=== PATIENT | female | born 1940 | race Caucasian/White ===

== ENCOUNTER → 2020-07-20 10:11 | Outpatient (CLI) | payer OTHER, SELFPAY ==
[2020-07-20 11:05] LABS: Bacteria Urine None Seen; RBC Urine None Seen (0-5/HPF)
[2020-07-20 11:28] LABS: Add Manual Diff / Slide Review NO; Basophils Absolute Auto 0 /uL (0-100); Basophils Percent Auto 0.8 % (0-2); Eosinophils Absolute Auto 100 /uL (0-450); Hematocrit 40.6 % (36-46); Hemoglobin 13.6 g/dL (12.0-16.0); Lymphocytes Absolute Auto 1200 /uL (1100-4500); Lymphocytes Percent Auto 25.2 % (25-40); Mean Corpuscular HGB Conc 33.4 % (30-36); Mean Corpuscular Hemoglobin 29.7 PG (26-34); Mean Corpuscular Volume 88.9 fL (80-100); Monocytes Absolute Auto 400 /uL (0-900); Monocytes Percent Auto 9.1 % (3-14); Neutrophils Absolute Auto 2900 /uL (1500-7000); Neutrophils Percent Auto 62.9 % (50-75); Platelet Count 208 X10^3/uL (150-400); Red Blood Cell Count 4.57 X10^6/uL (4.0-5.2); Red Cell Distribution Width 14.1 % (11.6-14.8); White Blood Cell Count 4.7 X10^3/uL (4.5-11.0)
[2020-07-20 11:38] LABS: Hemoglobin A1C% w Est Avg Glu 5.5 % (4.0-6.0)
[2020-07-20 12:35] LABS: Appearance Urine UA CLEAR; Bilirubin Urine UA NEGATIVE (NEGATIVE); Color Urine UA YELLOW; Glucose Urine UA NEGATIVE (Negative); Ketones Urine UA NEGATIVE (NEGATIVE); Leukocyte Esterase Urine UA TRACE (NEGATIVE); Nitrite Urine UA NEGATIVE (Negative); Occult Blood Urine UA NEGATIVE (Negative); Protein Urine UA NEGATIVE (Negative); Specific Gravity Urine UA 1.015 (1.000-1.035); Urobilinogen Urine UA 0.2 E.U./dL (0.2)
[2020-07-20 12:48] LABS: Culture Indicated Urine Cult Not Indicated; WBC Urine 0-1/HPF (0-5/HPF)
[2020-07-20 12:59] LABS: BUN Creatinine Ratio 31.4 (6-22); Blood Urea Nitrogen 22 mg/dL (7-17); Carbon Dioxide 30 mmol/L (22-32); Chloride 103 mmol/L (98-107); Estimated Glomerular Filt Rate > 60.0 mL/min (>60); Glucose 90 mg/dL (80-110); HEMOLYSIS < 15 (0-50); Potassium 4.4 mmol/L (3.4-5.1); Sodium 138 mmol/L (137-145)
== END ==
PROVIDERS: Referring Provider Orthopaedic Surgery; Visit Provider Orthopaedic Surgery
DX: Z01.818 Encounter for other preprocedural examination (principal); Z01.812 Encounter for preprocedural laboratory examination; R73.9 Hyperglycemia, unspecified; N39.0 Urinary tract infection, site not specified
CPT/HCPCS: 36415; 80048; 81001; 83036; 85025; 93005

== ENCOUNTER 2020-08-04 06:14 | Day surgery (SDC) | payer OTHER, SELFPAY ==
[2020-07-21 09:18] VITALS: BMI 29.7
[2020-08-04] VITALS (14 sets, daily range): BP systolic 98–128; BP diastolic 36–70; PULSE 64–90; RESP 12–17; TEMP 35.5–36.8; O2SAT 92–100; BMI 29.7
--- NOTE | 2020-08-04 | DI.RAD.S_ITS ---
PROCEDURE: XR KNEE LT 1TO2V INDICATIONS: LEFT TOTAL KNEE TECHNIQUE: A total of 2 view(s) of the knee acquired. COMPARISON: None. FINDINGS: Bones: Patient is status post knee joint arthroplasty. Hardware components are in expected positions. Visualized bony structures are intact. Soft tissues: Overlying postoperative changes are noted. IMPRESSION: Normal alignment after left total knee arthroplasty. Dictated by: Doe Campo M.D. on 08/04/2020 at 10:46 Approved by: Doe Campo M.D. on 08/04/2020 at 10:47
[2020-08-04] MEDS: VANCOMYCIN 1,000 MG/200 ML PIGGYBACK 200 MG IV (06:58)
[2020-08-04] MEDS: MELOXICAM 7.5 MG TABLET 15 MG PO (06:59)
[2020-08-04] MEDS: LACTATED RINGERS 1,000 ML 42 ML IV (06:59)
[2020-08-04] MEDS: ACETAMINOPHEN 325 MG TABLET 975 MG PO (06:59)
[2020-08-04 07:03] LABS: COVID19 -Nasal RAPID Negative (Negative)
--- NOTE | 2020-08-04 07:38 | P.OP_ITS ---
Operative Date/Time/Diagnoses Date of procedure: 08/04/20 Time of procedure: 07:55 Pre-op diagnosis: left knee OA Post-op diagnosis: same Procedure & Clinicians Procedure: Left total knee arthroplasty Same procedure as scheduled: Yes Indications: The patient has had progressively worsening left knee pain with radiographic changes consistent with arthritis. Non-operative management has failed and the patient has requested total knee replacement. The risks, benefits and alternatives to surgery were discussed with the patient prior to proceeding. Risks discussed included, but were not limited to, failure to relieve pain, stiffness, infection, nerve damage, deep venous thrombosis, pulmonary embolism, stroke, coma, heart attack, permanent paralysis and , as well as the potential need for eventual revision of the prosthetic. Surgeon: Shira Quiroz Montess[facility] Program Director: Brian Medellin Anesthesia Type: General and Spinal Operative Notes Findings: Severe left knee osteoarthritis, good stability Closure Type: primary Specimen(s): none sent Prosthetic devices, grafts, tissues, transplants, or devices: Quiroz and Nephew Georgette BCS 2 size 4 femur, size 3 tibia, +11 poly, 32 by 7-1/2 mm patella Applied: drain(s) Estimated Blood Loss (mL): 250 Blood products transfused: none Tourniquet time (min): 67 Procedure in detail: The patient was seen in the pre-operative area, where the patient identified the left knee as the operative site and this was marked with my initials. The patient received pre-operative antibiotics, and was taken to the operating room and placed on the operative table in the supine position. After satisfactory anesthesia, a time analysis clerk out was performed. The left leg was encircled with a tourniquet about the proximal thigh, and the leg was prepared from the toes to the tourniquet with ChloroPrep in the usual fashion and draped through sterile drapes. The leg was elevated and exsanguinated with Eschmark bandage and the tourniquet inflated to [250] mmHg pressure. The knee was approached through an approximately 18 cm incision centered over the patella and carried into the knee through a medial parapatellar arthrotomy. A portion of the medial and lateral meniscus was resected. Soft tissue was carefully mobilized around the patella the patella was measured with a caliper. Bone was resected from the patella and the patellar height was reconstituted with up an appropriate sized patellar component. A cover was then placed on the patella. A small amount of additional medial and lateral meniscus was resected. The distal femur was cut at 5?. A [+2] cut was used. It looked like an appropriate distal femoral cut and the cut was made without difficulty. An extramedullary guide was used for the tibial cut. 10 mm was resected off the least affected side.The tibia was prepared. The rotation was assessed. The patient was placed in extension residual medial and lateral meniscus as well as any residual bone was carefully resected. Hemostasis was achieved especially posteriorly. Additional local was injected into the posterior capsule. The extension gap was assessed and additional releases for gap balancing were performed as necessary. It was checked with the gap chief information security officer. The femoral component was trial was placed and the notch was finished. The rotation was assessed and the appropriate size femoral guide was placed on the distal femur and finishing cuts were made. There is no evidence of notching. The anterior, posterior and chamfer cuts were then made. The posterior osteophytes and soft tissues were then removed. The posterior capsule was injected with part of a mixture of 60 ml 0.25% Marcaine mixed with 20 ml Exparel for post operative pain control. The remainder of this mixture was injected into the capsule and subcutaneous tissues during cement curing. The tibial and femoral components were then placed and the knee placed through a range of motion. Range of motion was [0-130], with good stability throughout the range. The trials were then removed, and the tibia was finished. The bone was prepared with pulsatile lavage, and dried with a sponge. Cement was applied and the final prosthetics placed. Excess cement was removed during and after cement curing. A brief Betadine soak was performed. After confirming there was no extruded cement posteriorly, the final tibial insert was placed. The knee was copiously irrigated and the tourniquet deflated. Hemostasis was obtained with the Bovie. A drain was placed and brought out superolaterally. The capsule was closed with interrupted nonabsorbable suture. The subcutaneous layer was closed with barbed sutures, and the skin with a running 3-0 V-Lock suture and Surgical glue. An Aquacel Ag dressing was applied and the patient was taken to recovery having tolerated the procedure well. Complications: none Post-operative Condition: stable Disposition: Acute Care Plan for aftercare: The patient will be maintained on a standard total knee replacement protocol with weight bearing as tolerated. The patient will receive aspirin and sequential compression devices for DVT prophylaxis. The patient will be discharged home when safe for the home environment.
--- NOTE | 2020-08-04 07:38 | PM.PREOP ---
Pre-operative Note COVID-19 COVID-19 status: Negative Interval Note History & Physical reviewed/Exam performed by Physician: Yes Changes to H&P: No
[2020-08-04] MEDS: CEFAZOLIN 1 GM VIAL 2 GM IV ×2 (07:51→16:22)
[2020-08-04] MEDS: TRANEXAMIC ACID 1,000 MG VIAL 1000 MG INJ ×2 (08:02→09:28)
--- NOTE | 2020-08-04 08:22 | SUR.OPER ---
Supine on padded OR bed. Pillow under head, arms secured on padded armboards <90 degree abduction. Safety belt across torso. Non-operative leg secured with tape over blanket over lower leg. Operative leg secured in DeMayo/Frederick positioner. Foam padded brace at thigh of operative leg.
[2020-08-04] MEDS: BUPIVACAINE LIPOSOME 266 MG/20 ML VIAL INJ (08:27)
[2020-08-04] MEDS: SODIUM CHLORIDE IRRIG SOLUTION 250 ML, POVIDONE-IODINE SPONGE STICKS 1 APPLIC IRR (08:29)
[2020-08-04] MEDS: BUPIVACAINE 0.25% W/ EPI (PF) 10 ML VIAL 20 ML INJ (08:31)
--- NOTE | 2020-08-04 11:06 | PC.NURSE ---
Addendum entered by Priscilla Arthur R.N. 08/04/20 15:16: Patient ate well at lunch, she has minimal if any discomfort. Tylenol and ibuprofen given to patient to help prevent discomfort. Resting comfortably. Original Note: Patient back to the floor at 1035, she has an aquacel to her left knee with an gage wrap. Hemovac drain to be unclamped at 1130. Patient denies pain. She is on ivf. Thomas Saleh has feeling to her knee when touched. Denies nausea or pain at this time. Resting comfortably. [facility] wnl, will continue to check patients sensation level, she has scds on and is able to do ankle waves.
[2020-08-04] MEDS: LACTATED RINGERS 1,000 ML 100 ML IV ×2 (11:43→22:09)
--- NOTE | 2020-08-04 14:35 | PT.IIE ---
Current Diagnoses Unilateral primary osteoarthritis, left knee (08/04/20) Surgery Performed Operation Date: 08/04/20 07:45 Actual Procedures p Total Knee Arthroplasty(Left) - Shira Quiroz MD Surgical History (Last Updated 07/21/20 @ 10:21 by Nidia Awad, RN) History of facelift History of hysterectomy Hx of abdominoplasty Hx of appendectomy Hx of bilateral cataract extraction Medical History (Last Updated 07/21/20 @ 10:21 by Nidia Awad RN) Anxiety Depression GERD (gastroesophageal reflux disease) Hiatal hernia HLD (hyperlipidemia) HTN (hypertension) Hypothyroidism Nasal congestion Osteoarthritis Seasonal allergies Sensitive skin Sleep apnea Physical Therapy Inpatient Evaluation/Re-Eval M1 PT/OT-IP Prior Functional Status Start: 08/04/20 16:25 Freq: NEEDED Status: Active Protocol: Document 08/04/20 14:35 AB (Rec: 08/04/20 16:44 AB [id number]) Medical Review Prior Functional Status Medical History Reviewed Yes Communication able to make needs known Mobility and Gait pt stated that she is indpeendent with all mobilities an ambulation wtihout AD Prior Functional Level (Other details) Pt lives in [place] and stated that she was just visiting her partner/friend and decided to have a knee surgery. Social History Household Members significant other Living Arrangements House Number of Floors (Floors) Two Floors Number of Stairs To Enter/Railing? 4 steps L rail to enter the house 10 steps B rails to get to bedroom level Home Environment Standard Height Toilet,Walk in Shower Home Equipment Raised Toilet Seat Without Armrests,Hand Held Shower Additional Social History Comment initially stated that her partner/friend Fuentes will be able to assist her but limited and will not assist her with toileting/shower needs. also stated that Fuentes will refuse caregiver training (PT instructed pt to just ask Fuentes anyways) and that Fuentes will be having outpt back surgery this monday. aslo stated that somebody already arranged for HHPT for her. M2 PT-IP Current Condition Start: 08/04/20 16:25 Freq: NEEDED Status: Active Protocol: Document 08/04/20 14:35 AB (Rec: 08/04/20 16:44 AB [id number]) Physical Therapy Current Condition Current Condition Evaluation Date 08/04/20 Treatment Diagnosis s/p L TKA; difficulty in walking Onset Date 08/04/20 Weight Bearing Status Weight Bearing Status Weight Bear as Tolerated Allowed Weight Bearing Amount (enter % LLE WBAT or #) (%) M3 PT-IP Subjective Start: 08/04/20 16:25 Freq: NEEDED Status: Active Protocol: Document 08/04/20 14:35 AB (Rec: 08/04/20 16:44 AB [id number]) Subjective Physical Therapy Visit Type Type Initial Evaluation Visit Start Time 14:35 Visit Stop Time 15:38 Total Visit Minutes 63 Number of MARKETING AUTOMATION MANAGER Visits 0 Physical Therapy Visit Comments Patient Comments pt is agreeable to do PT Therapy Pain Assessment Pain When Pain Assessed At Rest Pain Present Pain Present Pain Reported Location left knee Intensity 2 Scale Used Numeric (0 - 10) Pain Management Techniques Apply Cold,Distraction, Elevation,Modification of Treatment,Re-positioning, Timing of Activity with Medications M4 PT-IP Mobility and Gait Start: 08/04/20 16:25 Freq: NEEDED Status: Active Protocol: Document 08/04/20 14:35 AB (Rec: 08/04/20 16:44 AB [id number]) PT-Bed Mobility Assessment Supine to Sit Supine to Sit Contact Guard Assistance PT-Transfer Assessment Sit to and From Stand Sit to and from Stand Maximum Assistance,1 Person Assistance,Use of Upper Extremities Equipment Transfer Assistive Device Gait Belt,Front Wheeled Walker Orthotic/Prosthetic Devices or Brace: No Transfers Transfer Destination Chair Transfer Technique ambulated using FWW Transfer Ability Level of Assist Maximum Assistance,1 Person Assistance,Use of Upper Extremities Comments Mobility Comments BP supine: 113/43. completed supine to sit CGA. pt was able to sit on EOB SBA. max cues for safety. completed sit to stand max A and cues. required assist to stabilize LLE. pt can be impulsive and has difficulty following directions. pt completed ambulation using FWW max A ~ 12 ft and max cues. required assist for L knee control. pt requested to stay up on chair . positioned on chair. call light and table placed within reach. reviewed post-op folder and HEP with pt. informed nurse/ NAC regarding level of assistance of pt. Gait Assessment Gait Gait Assistance Required: Maximum Assistance,1 Person Assist Distance (Feet) 12 Able to Maintain Weight Bearing Status Yes During Gait Assistive Devices Assistive Device Gait Belt,Front Wheeled Walker Orthotic/Prosthetic Devices or Brace: No Gait Deviations General Gait Pattern Antalgic,Decreased Stride Length,Decreased Feet Clearance,Step-to Gait Factors Limiting Gait Function Factors Limiting Gait Function Decreased Activity Tolerance, Decreased Sensation,Decreased Strength,Difficulty Following Directions,Limited Range of Motion,Pain,Poor Balance,Poor Safety Awareness PT-Balance Assessment Sitting Balance and Reactions Static Sitting Balance Ability Good Dynamic Sitting Balance Ability Good Standing Balance and Reactions Static Standing Balance Ability Fair Dynamic Standing Balance Ability Poor Device Used FWW M5 PT-IP Objective Assessments Start: 08/04/20 16:25 Freq: NEEDED Status: Active Protocol: Document 08/04/20 14:35 AB (Rec: 08/04/20 16:44 AB [id number]) Orientation Orientation/Cognition Level of Alertness Alert Orientation Name,Place,Situation Safety Awareness Decreased Safety Awareness Memory Description Short Term Impaired Gross Range of Motion Lower Extremity ROM Assessment Within Functional Limits Strength Lower Extremity Strength Assessment Left Impaired Hip 4-/5 Knee 3+/5 Coordination Assessment Gross Coordination Gross Coordination WNL Muscle Tone Muscle Tone WNL Yes M6 PT-IP Treatment Start: 08/04/20 16:25 Freq: NEEDED Status: Active Protocol: Document 08/04/20 14:35 AB (Rec: 08/04/20 16:44 AB [id number]) Physical Therapy Treatment Exercises Exercises Quad Sets,Heel Slides Education Education Provided Precautions,Weight Bearing Status,Post-Op Packet,Safety M7 PT-IP Assessment and Plan Start: 08/04/20 16:25 Freq: NEEDED Status: Active Protocol: Document 08/04/20 14:35 AB (Rec: 08/04/20 16:44 AB [id number]) PT Summary Assessment and Plan Potential Rehabilitation Potential Good Status of Condition at Evaluation Evolving Summary Impairments Pain,ROM,Strength,Balance, Coordination,Sensation,Tone, Cognition,Bed Mobility, Transfers,Gait,Activity Tolerance Assessment Summary pt s/p L TKA POD 0 and is requiring max A with ambulation using FWW. pt has difficulty following directions and requires cues with all tasks. pt lives in [place] and is just visiting her partner/friend who is also going to have a back surgery this monday. Pt stated that somebody has set up HHPT for her. pt have limited assistance at home and her friend will not be able to assist her starting this monday. will need to assess further for safe d/c plan. Goals Bed Mobility Goal Independent Transfer Goal Independent,Front Wheeled Walker Gait Goal Independent,Front Wheel Walker Gait Distance 150 Other Goals up/down 4 steps L rail ascending SBA up/down 10 steps B rails SBA Days to Meet Goals 5 Frequency of Treatment Frequency Of Treatment Twice a Day Treatment Plan Physical Therapy Treatment Plan Bed Mobility Training,Transfer Training,Gait Training, Therapeutic Exercise,Balance Retraining,Post Op Education, Discharge Planning,Hot or Cold Pack,Neuromuscular Re-ed, Coordination Retraining,Manual Therapy Other Recommendations and Next Treatment ambulation, stair climbing, Focus caregiver training Precautions Other Precautions LLE WBAT Recommendations To Nursing Amount of Assist Needed 1 Person Assist Discharge Recommendations PT Discharge Recommendations Home with 19/09 Assist Available,Home Health,SNF Rehab,Home vs SNF Transportation Needs at Discharge Wheelchair/Cabulance
[2020-08-04] MEDS: IBUPROFEN 400 MG TABLET PO ×3 (14:37→22:10)
[2020-08-04] MEDS: ACETAMINOPHEN 325 MG TABLET 650 MG PO ×2 (14:38→22:10)
[2020-08-04] MEDS: OXYCODONE IR 5 MG TABLET PO (19:06)
[2020-08-04] MEDS: GABAPENTIN 300 MG CAPSULE PO (22:10)
[2020-08-04] MEDS: DOCUSATE 100 MG CAPSULE PO (22:10)
[2020-08-04] MEDS: ASPIRIN EC 81 MG TABLET PO (22:11)
--- NOTE | 2020-08-04 23:27 | PC.NURSE ---
pt unable to void earlier, bladder scan 575cc. Tamar-RN attempted to straight cath, but it was too painful for patient. pt refused straight cath. pt able to void around 200cc. eventually pt voided an extra 600cc. pt has been ambulating to the bathroom. SBA-fww.
[2020-08-05] MEDS: CEFAZOLIN 1 GM VIAL 2 GM IV (00:09)
[2020-08-05 00:27] VITALS: O2SAT 95
[2020-08-05] MEDS: OXYCODONE IR 5 MG TABLET PO ×3 (02:28→11:48)
[2020-08-05] MEDS: diphenhydrAMINE 50 MG/ML VIAL 25 MG IV (02:28)
[2020-08-05 05:47] LABS: Hematocrit 35.5 % (36-46); Hemoglobin 11.9 g/dL (12.0-16.0)
[2020-08-05 05:49] VITALS: BP 111/46; PULSE 66; RESP 16; TEMP 36.3; O2SAT 98
[2020-08-05] MEDS: IBUPROFEN 400 MG TABLET PO ×2 (05:54→09:18)
[2020-08-05] MEDS: PANTOPRAZOLE DR 20 MG TABLET PO (06:07)
[2020-08-05 07:50] VITALS: BP 127/48; PULSE 68; RESP 16; TEMP 36.1; O2SAT 97
[2020-08-05 08:46] VITALS: RESP 14; O2SAT 98
[2020-08-05] MEDS: ACETAMINOPHEN 325 MG TABLET 650 MG PO (09:17)
[2020-08-05] MEDS: ATORVASTATIN 20 MG TABLET PO (09:18)
[2020-08-05] MEDS: DOCUSATE 100 MG CAPSULE PO (09:18)
[2020-08-05] MEDS: ASPIRIN EC 81 MG TABLET PO (09:18)
[2020-08-05] MEDS: SERTRALINE 50 MG TABLET PO (09:18)
--- NOTE | 2020-08-05 09:21 | CM.DANOTE ---
Addendum entered by SONDRA Johnson 08/05/20 11:17: ADD: Per PT, pt and SO Fuentes did well with CG training and stairs and pt safe for d/c home with neighbor friend assist if needed and outpt PT. Per Leonardo VIDAL, writing d/c orders for pt to d/c home today with no identified barriers to discharge. S.O. bedside in the room and providing transport home today. BF Original Note: Patient is a 80 year old female who was admitted on 08/04/20 for LTKA. Pt has REG MCR ADV for insurance and her PCP is in [place]. EMR was reviewed. Per Ortho MD, pt tolerated procedure well and recommending outpt PT and pt may be stable for d/c home later today after CG training with PT. Per PT yesterday, pt with limited physical assist from Sig other and pending progress recommending possible SNF vs HH. PT has CG training set up for 1000 today with pt and Sig Other Fuentes and will attempt stairs. SW met bedside with pt and explained role and she confirms she has been staying with her Sig Other Fuentes in [place] although her permanent address is [place]. Pt is active and independent at baseline and denies any DME but does not drive anymore and SO Fuentes transports pt when needed. Pt states her SO has had both his knees repaired and is quite aware of the precautions and recommendations and is willing to assist pt at d/c. SO will be bedside in about an hour to work with PT. Pt states she discussed HH vs outpt PT with Ortho and pt plans to utilize [facility] in [place] at d/c. Plan: SW to follow closely for CG training and stairs today with pt and SO towards confirming safe plan of home with assist and outpt PT. SONDRA Johnson Discharge Planning/Care Management CM Discharge Assessment Start: 08/05/20 09:16 Freq: Status: Active Protocol: Document 08/05/20 09:16 BF (Rec: 08/05/20 09:20 [id number]) Discharge Planning Assessment Assigned Primary Teacher SONDRA Stover DPOA/Assigned Designee Name informally gill Shen Contact Information [phone] Advance Directives? No Advance Directives on File No History Provided By Patient,Medical Record Has Patient been admitted in last 30 No days? Prior Living Arrangements House Household Members significant other Type of transporation used prior to Relies on Others admit Comment Sig Other does the driving Independent with ADL's Yes Is patient alert and oriented? Yes Needs Assistance With Home Chores / Shopping Caregiver for Another No Community Services used prior to Physical Therapy admission: Patient/Family Preference OP PT Therapy Comment HH vs outpt Barriers to Discharge No Discharge Plan Home Community Services Physical Therapy Transportation Arrangement Sig Other Fuentes to arrive bedside today to transport at d/c Referrals Initiated None needed Whiteboard Updated in Patient Room with Yes name and ext. # of Primary Teacher Review Status In Process Please Provide Date Initial DC 08/05/20 Assessment Was Performed Next Review Type Continued Stay Review Pre-Anesthesia Assessment Start: 07/21/20 09:18 Freq: Status: Active Protocol: Document 07/21/20 09:18 CAB (Rec: 07/21/20 10:45 CAB [id number]) Pre-Anesthesia Assessment PAC Comment COVID Rapid on admit - ok per Gloria Preferred Name Thomas Saleh Patient Information Reviewed Via Phone Assessment Assessment Completed With Patient Diagnostic Results BMP/CMP,CBC,EKG,Urinalysis Comment Labs/EKG @ 07/20/20-Pt needs to schedule, wants to do in [place] Primary Care Provider Eleni Seen Specialist in Last 12 Months Yes Specialist Seen Orthopedist Primary Language Citizen Of [place] Stoker Mechanic Required No Height 158.75 cm Weight 74.843 kg Body Mass Index (BMI) 29.7 Hearing Ability Normal Visual Assist None Dentition Type Teeth, Natural Present,Full- Upper Barriers to Learning Age related,Memory Hx Anesthesia Reactions No Hx Family Anesthesia Reaction No Hx Malignant Hyperthermia No Hx Blood Transfusions No Anesthesia Review Requested No alcohol intake never Smoking Status Never smoker Substance Use Type does not use Pain Present Pain Reported Musculoskeletal Symptoms Abnormal Gait,Back Pain, Difficulty Walking,Joint Pain, Neck Pain History of Falling (Recent or History of No ) Patient is completely paralyzed or No completely immobile Mental Status Oriented to own ability Is patient on oxygen? No Does patient have LAROSE/SOB No Hx Sleep Apnea Yes: Unable to tolerate CPAP CPAP/BIPAP use prescribed not used Currently Taking a Beta Bindu No Can You Climb a Flight of Stairs Without Yes SOB Hx Chest Pain No Hx SOB No Hx Syncope or Dizziness No Anti-Coagulant Therapy No Has a Casting Machine Set Up Operator No Cardiac Testing No Hx Pacemaker/ICD No Pacemaker Rep Required? No Cardiac Clearance Received Not Applicable Comment No regular exercise routine, able to ambulate around property without issue Diet Type At Home Regular dysphagia No Gastrointestinal Symptoms Reflux Bladder Pattern Incontinent, Stress Urinary Catheter Present No Hx Urinary Self Catheterization No Diabetes No HgbA1C 5.5 Date 07/20/20 Patient No Lactating No Hx Drug Resistant Organism No Presence of External or Internal Medical Yes: Phu eye lens Devices Have you had any close contact with No someone diagnosed with COVID-19? Marital Status / Lives With significant other Prior Living Arrangements House Support System None Does the Patient Have Assistance After No: S.O. minimal assistance Surgery Patient Discharge Plan Description Return Home Comment Pt not advised on length of stay per surgeon Feels Safe in Current Environment Yes Been Physically Hurt or Threatened By a No Person in Current Environment Do you have thoughts of harming yourself None or others? Are you currently considering suicide? No Do you have a plan to hurt yourself or No Plan others? Do You Have Any Spiritual Beliefs That No May Affect Your HC Choices? Do You Have Any Cultural Practices That No May Affect Your HC Choices? Comment Flash Who Can We Speak to About Patient's Care Family, friends Identifying Code for Release of Patient Declines to issue Information Health Care Proxy/Next of Kin Ac Blackwood (son) Ghassan ( son) Health Care Proxy Phone Number Ac: [phone] Ghassan: [phone] Emergency Contact Name Ac Blackwood (son) Ghassan ( son) Emergency Contact Phone Number Ac: [phone] Ghassan: [phone] Advance Directives? No Power of Resource Forester No: Pt unsure PAC Instructions Do not shave/clip surgical site,Durable medical equipment ,Medications to take/avoid, Nasal antibiotic,No ETOH/ petroleum product on skin DOS, NPO,Post-op transportation,Pre -surgical wash,Sensory aids, Sturdy shoes/comfortable clothes,Do not bring valuables and remove jewelry
--- NOTE | 2020-08-05 10:40 | PT.IPTN ---
Current Diagnoses Unilateral primary osteoarthritis, left knee (08/04/20) Surgery Performed Operation Date: 08/04/20 07:45 Actual Procedures p Total Knee Arthroplasty(Left) - Shira Quiroz MD Physical Therapy Treatment Note M2 PT-IP Current Condition Start: 08/04/20 16:25 Freq: NEEDED Status: Active Protocol: Document 08/04/20 14:35 AB (Rec: 08/04/20 16:44 AB [id number]) Physical Therapy Current Condition Current Condition Evaluation Date 08/04/20 Treatment Diagnosis s/p L TKA; difficulty in walking Onset Date 08/04/20 Weight Bearing Status Weight Bearing Status Weight Bear as Tolerated Allowed Weight Bearing Amount (enter % LLE WBAT or #) (%) M3 PT-IP Subjective Start: 08/04/20 16:25 Freq: NEEDED Status: Active Protocol: Document 08/05/20 10:06 SP (Rec: 08/05/20 12:46 SP [id number]) Subjective Physical Therapy Visit Type Type Treatment Note Visit Start Time 10:06 Visit Stop Time 10:40 Total Visit Minutes 34 Notes SO attended and provided CGA as needed throughout tx with cuing for positioning during stair mgt for safety. Number of GRAPHIC PRODUCTION ARTIST Visits 1 Physical Therapy Visit Comments Patient Comments pt is agreeable to do PT. Pt reported that wishes to go to outpatient therapy and SO can take her but female neighbor mentioned is available if needed for any needs. Patient Goals Return home with SO for assist as needed and attend outpatient therapy. Therapy Pain Assessment Pain When Pain Assessed During Mobility Pain Present Pain Present Pain Reported Location left knee Intensity 8 Scale Used during mobility, premedicated. Pain Behaviors Facial Grimacing Pain Management Techniques Apply Cold,Re-positioning, Timing of Activity with Medications M4 PT-IP Mobility and Gait Start: 08/04/20 16:25 Freq: NEEDED Status: Active Protocol: Document 08/05/20 10:06 SP (Rec: 08/05/20 12:46 SP [id number]) PT-Bed Mobility Assessment Supine to Sit Supine to Sit Standby Assistance Sit to Supine Sit to Supine Standby Assistance Scooting Scooting to Edge of Bed Standby Assistance Scooting Up and Down in Bed Standby Assistance PT-Transfer Assessment Sit to and From Stand Sit to and from Stand Standby Assistance,Contact Guard Assistance,Use of Upper Extremities Equipment Transfer Assistive Device Gait Belt,Front Wheeled Walker Orthotic/Prosthetic Devices or Brace: No Transfers Transfer Destination Chair Transfer Technique ambulated using FWW Transfer Ability Level of Assist Contact Guard Assistance,Use of Upper Extremities Comments Mobility Comments Pt was seated in chair when arrived. SO donned gait belt with instruction for safety support. Pt completed sit<> stand CGA initally then walked further distance into hallway using personal FWW CG> sBA via SO to stairs, complete stair mgt and returned to room . stand>sit on R EOB >supine SBA with ability to self lift LLE into bed with out UE support, lateral and superior scoot up to center self in bed using BUE and RLE. Instructed post op ex with AROM demonstrated. Supine>sit, Sit> stand using FWW SBA walked around bed and good hand placement slow descent into chair. Reviewed LAQ and knee flexion seated in chair. Pt had all needs, call light in reach before left. Gait Assessment Gait Gait Assistance Required: Standby Assistance,Contact Guard Assist Distance (Feet) 230 Able to Maintain Weight Bearing Status Yes During Gait Assistive Devices Assistive Device Gait Belt,Front Wheeled Walker Orthotic/Prosthetic Devices or Brace: No Gait Deviations General Gait Pattern Antalgic,Decreased Stride Length,Decreased Feet Clearance Factors Limiting Gait Function Factors Limiting Gait Function Decreased Activity Tolerance, Decreased Strength,Difficulty Following Directions,Limited Range of Motion,Pain Comments Gait Comments Pt ambulated to stairs, around nursing station and back to room step over step, cued for knee flexion and heel to phases with improvement using fWW initially cGA then decrease to SBA. Stair Climbing Assessment Evaluation Level of Assist On Stairs Contact Guard Assistance,1 Person Assistance Devices Stair Climbing Assistive Devices Left Railing,Right Railing Technique/Endurance Stair Climbing Direction Ascend and Descend Stair Climbing Technique Step to Step Number of Steps Climbed 3 Stair Climbing Set # Repetitions (reps) 1 Comments Stair Climbing Comments ascend/ descend 3 stairs step to patterning using BHR with good follow through post instruction on proper LE patterning, CGA by SO. PT-Balance Assessment Sitting Balance and Reactions Static Sitting Balance Ability Normal Dynamic Sitting Balance Ability Normal Standing Balance and Reactions Static Standing Balance Ability Good Dynamic Standing Balance Ability Fair Device Used FWW M5 PT-IP Objective Assessments Start: 08/04/20 16:25 Freq: NEEDED Status: Active Protocol: Document 08/04/20 14:35 AB (Rec: 08/04/20 16:44 AB [id number]) Orientation Orientation/Cognition Level of Alertness Alert Orientation Name,Place,Situation Safety Awareness Decreased Safety Awareness Memory Description Short Term Impaired Gross Range of Motion Lower Extremity ROM Assessment Within Functional Limits Strength Lower Extremity Strength Assessment Left Impaired Hip 4-/5 Knee 3+/5 Coordination Assessment Gross Coordination Gross Coordination WNL Muscle Tone Muscle Tone WNL Yes M6 PT-IP Treatment Start: 08/04/20 16:25 Freq: NEEDED Status: Active Protocol: Document 08/05/20 10:06 SP (Rec: 08/05/20 12:46 SP [id number]) Physical Therapy Treatment Exercises Exercises Ankle Pumps,Quad Sets,Heel Slides,Short Arc Quads,Seated Knee Flexion/Extension Knee ROM Measurement 90 deg AROM LLE Education Education Provided Precautions,Weight Bearing Status,Post-Op Packet,Safety M7 PT-IP Assessment and Plan Start: 08/04/20 16:25 Freq: NEEDED Status: Active Protocol: Document 08/05/20 10:06 SP (Rec: 08/05/20 12:46 SP [id number]) PT Summary Assessment and Plan Potential Rehabilitation Potential Good Status of Condition at Evaluation Evolving Summary Impairments Pain,ROM,Strength,Balance, Coordination,Sensation,Tone, Cognition,Bed Mobility, Transfers,Gait,Activity Tolerance Progress Towards Goals Progressing Toward Goals,Slow Progress due to Pain,Slow Progress due to Activity Tolerance Assessment Summary Pt required SBA during bed mobility, CGA initially Sit> stand and gait then decreased to sBA using personal/ borrowed FWW, CGA stair mgt. Pt is ok to return home with SO and female neighbor is available to assist her as needed when medically cleared. Pt preferred to go to outpatient therapy and SO or female neighbor can assist in transportation. Goals Bed Mobility Goal Independent Transfer Goal Independent,Front Wheeled Walker Gait Goal Independent,Front Wheel Walker Gait Distance 150 Other Goals up/down 4 steps L rail ascending SBA up/down 10 steps B rails SBA Days to Meet Goals 5 Frequency of Treatment Frequency Of Treatment Twice a Day Treatment Plan Physical Therapy Treatment Plan Bed Mobility Training,Transfer Training,Gait Training, Therapeutic Exercise,Balance Retraining,Post Op Education, Discharge Planning,Hot or Cold Pack,Neuromuscular Re-ed, Coordination Retraining,Manual Therapy Other Recommendations and Next Treatment Post op ex, gait using fWW Focus further distance. Precautions Other Precautions LLE WBAT Recommendations To Nursing Amount of Assist Needed Standby Assistance Discharge Recommendations PT Discharge Recommendations Home with Assistance, Outpatient PT Transportation Needs at Discharge Wheelchair/Cabulance
--- NOTE | 2020-08-05 11:03 | PM.DS.1 ---
History of Present Illness History of Present Illness Date Patient Seen: 08/05/20 Time Patient Seen: 11:03 Chief complaint: OPB Narrative: Patient's pain is [id number]. Denies fever or chills. No nausea or vomiting. Discharge Providers Provider Discharge Date: 08/05/20 Consults: 08/04/20 07:00 Consult to Anesthesiology Routine Comment: Consulting Provider: Anesthesiologist Reason for consultation: Regional block for post operative pain control 08/04/20 07:27 Consult to Respiratory Therapy Evaluate & Treat Comment: Physician Instructions: Evaluate and treat 08/04/20 10:59 Consult to Discharge Planning Routine Comment: Consult to Physical Therapy Evaluate & Treat Comment: Physician Instructions: postop TKA protocol Consult to Respiratory Therapy Evaluate & Treat Comment: Physician Instructions: Evaluate and treat Discharge provider: Brian Medellin PA-C Summary Hospital Course Discharge Diagnosis: Left knee osteoarthritis Hospital Course: Procedure: Left total knee arthroplasty Same procedure as scheduled: Yes Indications: The patient has had progressively worsening left knee pain with radiographic changes consistent with arthritis. Non-operative management has failed and the patient has requested total knee replacement. The risks, benefits and alternatives to surgery were discussed with the patient prior to proceeding. Risks discussed included, but were not limited to, failure to relieve pain, stiffness, infection, nerve damage, deep venous thrombosis, pulmonary embolism, stroke, coma, heart attack, permanent paralysis and , as well as the potential need for eventual revision of the prosthetic. Surgeon: Shira Quiroz Gas Scrubber Operator: Brian Medellin Anesthesia Type: General and Spinal Operative Notes Findings: Severe left knee osteoarthritis, good stability Closure Type: primary Specimen(s): none sent Prosthetic devices, grafts, tissues, transplants, or devices: [employer] BCS 2 size 4 femur, size 3 tibia, +11 poly, 32 by 7-1/2 mm patella Applied: drain(s) Estimated Blood Loss (mL): 250 Blood products transfused: none Tourniquet time (min): 67 Patient admitted to the hospital for left total knee arthroplasty. Patient consented to the same. Patient taken to the operating room yesterday underwent left total knee arthroplasty. Patient back in her room recovering well and is in stable condition. Discharge home today in stable condition. is home and available to assist her. Status at Discharge Cognitive/behavioral status at discharge: at baseline, oriented Functional status at discharge: uses cane/walker Overall status at discharge: patient is progressing back to baseline Time Spent with Patient Time spent: Less than 30 minutes Exam Vital Signs (past 8 hours): - 08/05/20 05:49 08/05/20 07:50 08/05/20 08:46 Temperature 97.4 F L 97.0 F L Pulse Rate 66 68 Respiratory Rate 16 16 14 Blood Pressure 111/46 L 127/48 L Pulse Oximetry 98 97 98 Oxygen Delivery Method Room Air Oxygen Flow Rate 0 Narrative Exam Narrative: Pleasant female ambulating and room with walker. Patient is in no apparent distress. Left knee dressing is Clean, dry, intact.. Neurovascular status is intact to the bilateral lower extremities. Objective Labs Result Diagrams: 08/05/20 05:35 Labs: Laboratory Results - last 24 hr 08/05/20 05:35 Hgb 11.9 L Hct 35.5 L PFSH Medical History Anxiety Depression GERD (gastroesophageal reflux disease) Hiatal hernia HLD (hyperlipidemia) HTN (hypertension) Hypothyroidism Nasal congestion Osteoarthritis Seasonal allergies Sensitive skin Sleep apnea Surgical History History of facelift History of hysterectomy Hx of abdominoplasty Hx of appendectomy Hx of bilateral cataract extraction Social History household members: significant other Smoking Status: Never smoker alcohol intake: never Discharge Assessment & Plan Assessment and Plan Assessment: Patient progressing as expected status post left total knee arthroplasty Plan of Treatment: Weight-bearing as tolerated, discharge home today in stable condition. Discharge Plan Discharge Plan Patient Disposition: Home Discharge orders & Medications Discharge Orders: Discharge (Order); Ordered 08/05/20 Ordered By: Brian Medellin Prescriptions: Continued triamterene-hydrochlorothiazid 75-50 mg Tablet 0.5 tab PO DAILY RF: 0 sertraline [Zoloft] 50 mg Tablet 50 mg PO DAILY RF: 0 gabapentin 300 mg Tablet 300 mg PO BEDTIME RF: 0 omeprazole 20 mg Tablet,Delayed Release (Dr/Ec) 20 mg PO DAILY RF: 0 thyroid (pork) [[place] Thyroid] 60 mg Tablet 60 mg PO DAILY RF: 0 simvastatin 40 mg Tablet 40 mg PO DAILY RF: 0 Discontinued ibuprofen 200 mg Capsule 400 mg PO DAILY PRN (Reason: Pain) RF: 0 Follow up/Referrals: Shira Quiroz MD [Physician] - (2 weeks) Diet/Activity/Treatments Diet: Diet as Tolerated Activity: Weightbearing as tolerated Cold/Heat Therapy: Apply ice to knee as needed Skin/Wound/Dressing Care Report to your healthcare provider any signs of infection, such as:: chills, fever, increased pain, unusual drainage and unusual redness Dressing: Keep dressing clean and dry. May remove Rickie wrap after 48-72 hours Visit Report/Discharge Packet Instructions: DI for Knee Replacement Stand Alone Forms: Surgery Discharge Discharge Data Attending Provider: Shira Quiroz Quality VTE Deep Vein Thrombosis/Pulmonary Embolism Present on Admission: No
--- NOTE | 2020-08-05 13:46 | PC.NURSE ---
Pt received alert A&Ox3, VSS, afebrile on RA. Pt with hemovac to L knee, BRENNAN wrap and aquacel intact. Patient participating with PT using FWW, ambulating with steady gait. /spouse arrived at 1000 a.m. for caregiver training which was tolerated well. Pt c/o pain 8/10 consistently but able to perform ADL's and get in and out of bed independently with SBA. Good po intake.PA at bedside this a.m. clearing patient for discharge.Hemovac drain dc'd. Bloody output of 65cc. Pt verbalized understanding of activity, signs of infection, medications and follow up appointments. GOVERNMENT AFFAIRS DIRECTOR escorted patient via w/chair to private vehicle with spouse. She stated she had all of her belongings.
== END 2020-08-05 12:10 | disposition home or self-care (01) ==
LOC: OR 06:15 → AC 10:41
PROVIDERS: Referring Provider Orthopaedic Surgery; Visit Provider Orthopaedic Surgery
PROC: 0SRD0JZ Replacement of Left Knee Joint with Synthetic Substitute, Open Approach (ICD-10-PCS; CPT 27447; principal; 2020-08-04 07:45)
DX: M17.12 Unilateral primary osteoarthritis, left knee (principal); E03.9 Hypothyroidism, unspecified; I10 Essential (primary) hypertension; K21.9 Gastro-esophageal reflux disease without esophagitis; F32.9 Major depressive disorder, single episode, unspecified; Z20.822 Contact with and (suspected) exposure to COVID-19
CPT/HCPCS: 27447; 36415; 73560; 85014; 85018; 87635; 94760; 94762; 97116; 97162; 97530; C1776; C9290; J0690; J1100; J1200; J2250; J2274; J2405; J2704; J3010